=== PATIENT | female | born 1960 | race Two or more races ===

== ENCOUNTER → 2016-12-06 | Outpatient (CLI) | payer OTHER ==
--- NOTE | ~2016-12-06 | MR2 ---
[facility] A Service of [facility] & [facility] / [facility] RADIOLOGY TEXT RESULTS PATIENT: BAT[facility]OL [facility]AK[facility] 58 UN[facility] #: [id number] AGE: [address]: Juliana Cedillo MD SEX: F ORDER DR: [id number] [facility]. [place], [place] [address] [id number] O MR#: [id number] Acc #: [id number] NAME: BATOOL BAKER : 1960 SEX: F STUDY DATE/TIME: 12/06/2016 16:10 UNIT: [facility] ROOM: STUDY DESCRIPTION: MR Abdomen WWo Cont Attending Physician: Juliana Cedillo M.D. Referring Physician: Juliana Cedillo M.D. Ordering Physician: Juliana Cedillo M.D. Primary Care Physician: Juliana Cedillo M.D. MRI CENTER REPORT This report is preliminary unless electronic signature is present. EXAM MR abdomen with and without contrast INDICATION Liver mass. Abnormal CT scan. Initial MR staging. TECHNIQUE Multiplanar MRI of the abdomen with and without IV contrast (11 mL MultiHance IV contrast). COMPARISON CT abdomen and pelvis dated 11/10/2016. FINDINGS The liver is morphologically normal. There is no iron deposition or hepatic steatosis. There is a large T2 hyperintense mass in the posterior aspect of the right hepatic lobe (segment VII) measuring 5.2 x 7.1 x 6 cm. This has T1 hypointense signal on the precontrast sequences. Following administration of contrast, there is nodular and interrupted peripheral enhancement with gradual filling in on the delayed images. This is indicative of a benign hemangioma. 2 smaller hemangiomas are identified also in segment 7 measuring up to 1.2 cm. No suspicious mass is identified. Hepatic vasculature is patent. Gallbladder is not distended. The pancreas, spleen, and adrenal glands are within normal limits. The kidneys enhance normally. The bowel is not dilated. Please note that that the right-sided hydronephrosis described on the prior CT scan has resolved. STS. [facility] A Service of [facility] & [facility] / [facility] RADIOLOGY TEXT RESULTS PATIENT: BATOOL BAKER [id number] : 58 UNIT #: [id number] AGE: [address]: Juliana Cedillo MD SEX: F ORDER DR: No abnormal bone marrow signal. IMPRESSION 1. Normal morphology of the liver. 2. Large benign hemangioma in the posterior right hepatic lobe measuring 7.1 cm. 3. 2 smaller hemangiomas also in the posterior right hepatic lobe. Dictated by... Larry Miguel M.D. THIS IS AN ELECTRONICALLY VERIFIED REPORT Larry Miguel M.D. at 12/09/2016 12:26 PM ALYX/martinez TD: 12/09/2016 09:18 JOB #: [id number] MRI CENTER REPORT COPY
== END | disposition home or self-care (01) ==
LOC: CMRI 14:19
DX: K76.9 Liver disease, unspecified (principal); D18.03 Hemangioma of intra-abdominal structures
CPT/HCPCS: 74183; A9577